=== PATIENT | male | born 1975 | race Caucasian/White ===

== ENCOUNTER 2024-03-22 11:43 | Outpatient (CLI) | payer OTHER, SELFPAY ==
--- NOTE | ~2024-03-22 | XR_ITS ---
Left wrist Technique: PA, oblique, lateral, and ulnar deviation views were obtained. Clinical History: Pain Findings: There is severe degenerative change of the radial scaphoid articulation. There is dorsal ro bluxation of the capitate with respect to the lunate, with dorsal tilt of the lunate. Possible underl samara scapholunate ligament tear. Soft tissues are unremarkable. Impression: Suspected scapholunate ligament tear with associated SLAC wrist, with advanced radio-scaphoid degener ative change, DISI, and dorsal subluxation of the capitate with respect to the lunate. Reviewed, dictated and finalized at location M. Impression: Suspected scapholunate ligament tear with associated SLAC wrist, with advanced radio-scaphoid degenerative change, DISI, and dorsal subluxation of the capitat e with respect to the lunate.
--- NOTE | ~2024-03-22 | XR_ITS ---
Right wrist Technique: PA, oblique, lateral, and ulnar deviation views were obtained. Clinical History: Pain Findings: No acute fracture or dislocation is seen. Osseous alignment is anatomic. Minimal degenerati ve change at the triscaphe joint and first CMC joint noted. Soft tissues are unremarkable. Impression: Minimal degenerative change, as above. Reviewed, dictated and finalized at location . Impression: Minimal degenerative change, as above.
[2024-03-22 12:01] LABS: Basophils Absolute Auto 0.04 K/mm3 (0.00-0.10); Basophils Percent Auto 0.7 % (0.0-1.0); Eosinophils Absolute Auto 0.15 K/mm3 (0.02-0.50); Eosinophils Percent Auto 2.6 % (1.0-6.0); Hematocrit 45.4 % (40.0-54.0); Hemoglobin 15.6 g/dL (14.0-18.0); Immature Granulocyte Absolute 0.01 K/mm3 (0.00-0.00); Immature Granulocyte Percent A 0.2 % (0.0-0.0); Lymphocytes Absolute Auto 1.77 K/mm3 (1.10-4.50); Mean Corpuscular HGB Conc 34.4 g/dL (32-36); Mean Corpuscular Hemoglobin 30.8 pg (27.0-31.0); Mean Corpuscular Volume 89.5 fL (78.0-102.0); Mean Platelet Volume 10.2 fl (8.7-11.0); Monocytes Absolute Auto 0.72 K/mm3 (0.10-0.90); Monocytes Percent Auto 12.6 % (2.0-11.0); Neutrophils Absolute Auto 3.02 K/mm3 (1.70-7.20); Neutrophils Percent Auto 52.9 % (50.0-70.0); Platelet Count Result 238 K/mm3 (150-420); Red Blood Count 5.07 M/mm3 (4.70-6.10); Red Cell Distribution Width 12.7 % (11.6-14.4); White Blood Count 5.7 K/mm3 (4.8-10.8)
[2024-03-22 12:24] LABS: Alanine Aminotransferase 255 U/L (16-63); Albumin Level 3.4 g/dL (3.4-5.0); Alkaline Phosphatase 90 U/L (46-116); Anion Gap 7 mmol/L (4-12); Aspartate Amino Transferase 167 U/L (15-37); Bilirubin,Total 0.6 mg/dL (0.00-1.00); Blood Urea Nitrogen 6 mg/dL (7-18); Calcium 8.7 mg/dL (8.5-10.1); Carbon Dioxide 29 mmol/L (21-32); Chloride 106 mmol/L (98-108); Cholesterol 141 mg/dL (0-200); Estimated Glomerular Filt Rate > 60; Glucose 65 mg/dL (70-99); HDL Direct 60 mg/dL (40-60); LDL Cholesterol Calculated 76 mg/dL (<130); Osmolality Calculated 289 mOsm/kg (285-295); Potassium 4.3 mmol/L (3.5-5.1); Sodium 142 mmol/L (136-145); Total Protein 7.2 g/dL (6.4-8.2); Triglycerides 26 mg/dL (0-150)
[2024-03-22 12:34] LABS: Thyroid Stimulating Hormone Reflex 0.65 u/IU/mL (0.36-3.74)
[2024-03-22 12:41] LABS: Rheumatoid Factor Screen Negative (Negative)
[2024-03-23 12:58] LABS: ANA Cascade Screen NEGATIVE (NEGATIVE)
[2024-03-24 07:44] LABS: Hepatitis B Surface Antigen NON-REACTIVE (NON-REACTIVE)
[2024-03-24 08:08] LABS: Hepatitis A Antibody IgM NON-REACTIVE (NON-REACTIVE); Hepatitis B Core Antibody NON-REACTIVE (NON-REACTIVE); Hepatitis C Virus Antibody REACTIVE (NON-REACTIVE)
[2024-04-05 11:26] LABS: Hepatitis C Additional Testing YES
== END 2024-03-22 11:44 | disposition home or self-care (01) ==
LOC: CHSLAB 11:45
PROVIDERS: PCP Family Medicine; Visit Provider Family Medicine
DX: Z00.00 Encounter for general adult medical examination without abnormal findings (principal); R74.01 Elevation of levels of liver transaminase levels; E03.9 Hypothyroidism, unspecified; M79.642 Pain in left hand; M25.532 Pain in left wrist; M25.531 Pain in right wrist; M79.641 Pain in right hand
CPT/HCPCS: 36415; 73110; 80053; 80061; 80074; 83516; 84443; 85025; 86038; 86225; 86235; 86430; 87522

== ENCOUNTER 2024-07-15 09:04 | Outpatient (CLI) | payer OTHER, SELFPAY ==
--- NOTE | ~2024-07-15 | MR_ITS ---
MRI of the lumbar spine Clinical History: Back pain Technique: Axial T2-weighted images, and sagittal T1-weighted, T2-weighted, and T2 fat-sat images wer e acquired. Findings: No fracture identified. Probable minimal grade 1 retrolisthesis of L2 over L3. There are ty pe III Modic changes especially about the L2-L3 disc space. No suspicious bone marrow signal abnormal ity seen. At L1-L2, there is moderate degenerative disc narrowing. No disc bulge or herniation evident. No spin al canal stenosis or definite neural foraminal narrowing. At L2-L3, there is severe degenerative disc narrowing. There is minimal disc bulge and mild facet art hropathy. No kenzie central canal stenosis. There is moderate bilateral neural foraminal narrowing. L3-L4, there is moderate degenerative disc narrowing. There is diffuse disc bulge and mild to moderat e facet arthropathy. No central canal stenosis. There is moderate to advanced right neural foraminal narrowing, and moderate left neural foraminal narrowing. At L4-L5, there is disc bulge with probable superimposed left paracentral disc protrusion, and severe facet arthropathy. There is resultant severe spinal canal stenosis/thecal sac compression, and sever e bilateral neural foraminal narrowing, right worse than left. At L5-S1, disc bulge and advanced facet arthropathy are present. There is mild central canal stenosis . There is severe bilateral neural foraminal compromise. Paravertebral soft tissues are unremarkable. Impression: Advanced degenerative spondylosis, worst at L4-L5. Please see details above. Reviewed, dictated and finalized at [facility]. Impression: Advanced degenerative spondylosis, worst at L4-L5. Please see details above.
== END 2024-07-15 09:05 | disposition home or self-care (01) ==
LOC: CHSIMG 09:06
PROVIDERS: PCP Family Medicine; Visit Provider Family Medicine
DX: M54.16 Radiculopathy, lumbar region (principal); M43.06 Spondylolysis, lumbar region
CPT/HCPCS: 72148

== ENCOUNTER 2024-10-13 15:34 | Emergency (ER) | payer OTHER, SELFPAY ==
[2024-10-13 15:34] VITALS: BP 120/86; PULSE 108; RESP 17; TEMP 36.6; O2SAT 97
--- NOTE | 2024-10-13 15:36 | ED_ITS ---
HPI - General Adult General Chief complaint: Back Pain/Injury Stated complaint: back pain Time Seen by Provider: 10/13/24 15:36 Source: patient Mode of arrival: ambulatory Limitations: no limitations History of Present Illness HPI narrative: 49-year-old white male with history of degenerative disc disease patient Dr. Dr. Reynaldo valencia get into pain management is not on any medicine for pain. Patient said he had a MRI done which showed degenerative disc disease. MRI was done July 17 Findings: No fracture identified. Probable minimal grade 1 retrolisthesis of L2 over L3. There are type III Modic changes especially about the L2-L3 disc space. No suspicious bone marrow signal abnormality seen. At L1-L2, there is moderate degenerative disc narrowing. No disc bulge or herniation evident. No spinal canal stenosis or definite neural foraminal narrowing. At L2-L3, there is severe degenerative disc narrowing. There is minimal disc bulge and mild facet arthropathy. No kenzie central canal stenosis. There is moderate bilateral neural foraminal narrowing. L3-L4, there is moderate degenerative disc narrowing. There is diffuse disc bulge and mild to moderate facet arthropathy. No central canal stenosis. There is moderate to advanced right neural foraminal narrowing, and moderate left neural foraminal narrowing. At L4-L5, there is disc bulge with probable superimposed left paracentral disc protrusion, and severe facet arthropathy. There is resultant severe spinal canal stenosis/thecal sac compression, and severe bilateral neural foraminal narrowing, right worse than left. At L5-S1, disc bulge and advanced facet arthropathy are present. There is mild central canal stenosis. There is severe bilateral neural foraminal compromise. Paravertebral soft tissues are unremarkable. Impression: Advanced degenerative spondylosis, worst at L4-L5. Please see details above. Patient says pain is worse it is better when he is lying down. Complains of tingling of his arms his feet. Denies any bowel incontinence. denies fever cough runny nose sore throat weakness problems voiding or stooling rash or itching bleeding or bruising dizziness or other complaints. Related Data Allergies Allergy/AdvReac Type Severity Reaction Status Date / Time No Known Allergies Allergy Verified 10/13/24 15:41 Review of Systems Review of Systems: All systems reviewed & are unremarkable except as noted in HPI and below PMFSH Past Medical History Medical History Degenerative disc disease Left leg injury Depression Anxiety Social History Social History Smoking status: Never smoker Alcohol intake: current Substance use type: marijuana Do You Feel Safe in your Home?: Yes Lack of Transportation: YES Lack of Food: Sometimes True Current Housing: Decline to Answer Concerned About Future Housing: YES Difficulty Paying Gas/Electric Bills: YES Difficulty Paying for Meds: No Education: High School Diploma/GED Exam Narrative: White male patient with no apparent distress.? Head normocephalic, atraumatic.? Eyes conjunctiva pink sclera nonicteric.? Extraocular movements are intact.? Ears externally normal.? Oropharynx is clear with moist mucous membranes without exudates.? Neck is supple nontender no lymphadenopathy.? Back Paralumbar tenderness negative straight leg raise bilaterally deep tender reflexes are +2 for lower extremities.? Lungs are clear.? Heart is regular rate and rhythm without murmurs gallops or rubs.? Chest wall nontender. Abdomen is soft and nontender no hepatosplenomegaly or masses no CVA tenderness no abdominal bruits.? Extremities no cyanosis clubbing or edema.? Skin is warm and dry without rashes or lesions.? Neurological patient is alert and oriented x4.? Motor and sensory grossly intact.? Gait is normal. Course Course Emergency Course: ?Patient placed in room: 4 ? History and physical was performed. Independent Historian: patient External Source Review: MRI done June Differential Dx includes but not limited to: degenerative disc disease acute on chronic back pain Medications were Reviewed: Medications given: Toradol 30 IM Independently Interpreted by me: Shared decision Making: evaluation was discussed all questions were asked and answered patient agreed with the plan he would take tramadol 50 mg every 6 hours as needed for pain and Tylenol and follow up with Dr. Dr. Reynaldo Callaway on Wednesday in 3 days. Social Situation Impacting Patients Care: Vital Signs Vital signs: Vital Signs Temperature 36.6 C 10/13/24 15:34 Pulse Rate 108 H 10/13/24 15:34 Respiratory Rate 17 10/13/24 15:34 Blood Pressure 120/86 10/13/24 15:34 Pulse Oximetry 97 10/13/24 15:34 Oxygen Delivery Room Air 10/13/24 15:34 Temperature 36.6 C 10/13/24 15:34 Pulse Rate 108 H 10/13/24 15:34 Respiratory Rate 17 10/13/24 15:34 Blood Pressure 120/86 10/13/24 15:34 Pulse Oximetry 97 10/13/24 15:34 Oxygen Delivery Room Air 10/13/24 15:34 Medical Decision Making Vital Signs Vital Signs: Vital Signs Temperature 36.6 C 10/13/24 15:34 Pulse Rate 108 H 10/13/24 15:34 Respiratory Rate 17 10/13/24 15:34 Blood Pressure 120/86 10/13/24 15:34 Pulse Oximetry 97 10/13/24 15:34 Oxygen Delivery Room Air 10/13/24 15:34 Temperature 36.6 C 10/13/24 15:34 Pulse Rate 108 H 10/13/24 15:34 Respiratory Rate 17 10/13/24 15:34 Blood Pressure 120/86 10/13/24 15:34 Pulse Oximetry 97 10/13/24 15:34 Oxygen Delivery Room Air 10/13/24 15:34 Discharge Plan Discharge Clinical Impression: Acute exacerbation of chronic low back pain Patient Disposition: Home, Self-Care Condition: Stable Instructions: Acute Low Back Pain (ED) Additional Instructions: Tylenol 500: 2 tablets 4 times a day as needed for pain . Tramadol 50 mg q.6 hours p.r.n. pain. Follow up with Dr. Dr. Reynaldo Callaway on Wednesday in 3 days. Return if you get worse or develops any new symptoms. Call Pain Management daily to schedule appointment. Patient Language: Occitan Prescriptions: New tramadol 50 mg tablet 50 mg PO Q6H PRN (Reason: pain) Qty: 14 0RF No Action bupropion HCl 300 mg tablet extended release 24 hr 300 mg PO QAM Qty: 90 3RF tamsulosin 0.4 mg capsule 0.4 mg PO DAILY Qty: 90 3RF sertraline 100 mg tablet 100 mg PO DAILY Qty: 90 3RF celecoxib [Celebrex] 200 mg capsule 200 mg PO DAILY Qty: 90 0RF quetiapine 50 mg tablet See Rx Instructions .ROUTE .COMPLEX Qty: 90 0RF Dose Instruction: TAKE 1 TABLET BY MOUTH EVERY DAY AT BEDTIME Rx Instructions: TAKE 1 TABLET BY MOUTH EVERY DAY AT BEDTIME Follow-up/Referrals: Jigar Callaway DO [Primary Care Provider] - Time of Disposition: 15:56
[2024-10-13] MEDS: KETOROLAC 30 MG/ML VIAL (*BKC) IM (15:51)
[2024-10-13 16:15] VITALS: BP 117/95; PULSE 85; RESP 16; TEMP 36.7; O2SAT 97
== END 2024-10-13 16:15 | disposition home or self-care (01) ==
LOC: CHSED 16:17
PROVIDERS: Emergency Provider Emergency Medicine; PCP Family Medicine
DX: M54.50 Low back pain, unspecified (principal); G89.29 Other chronic pain; F12.90 Cannabis use, unspecified, uncomplicated
CPT/HCPCS: 96372; 99283; J1885

== ENCOUNTER 2024-11-03 13:51 | Emergency (ER) | payer OTHER, SELFPAY ==
--- NOTE | ~2024-11-03 | CT_ITS ---
EXAMINATION: CT lumbar spine wo con DATE: 11/03/2024 16:57 INDICATION: Low back pain . TECHNIQUE: Computed tomography (CT) of the lumbar spine was performed without intravenous contrast. A utomated exposure control and iterative reconstruction technique were employed. The dose-length produ ct was 762.76 mGy-cm. COMPARISON: L-spine 07/15/2024. FINDINGS: 5 nonrib-bearing lumbar-type vertebral bodies. Pedicles intact. Mild scoliosis with lateral subluxation at L4-5. 2 mm retrolistheses at L2-3, L3-4 and L5-S1. Vertebral body heights are maintai ilir. Degenerative disc disease at all lumbar levels, severe at L2-3 and L4-5. Severe lower lumbar fac et arthropathy at L4-5 and L5-S1 with mild arthropathy at the remaining lumbar levels. Severe central canal stenosis and severe bilateral neural foraminal narrowing at L4-5 secondary to degenerative dis c, ligamentum, and facet change. Moderate left and severe right neural foraminal narrowing at L5-S1 s econdary to degenerative changes. Mild and moderate degrees of neural foraminal narrowing at the vilma ining lumbar levels. IMPRESSION: No acute fracture or traumatic malalignment in the lumbar spine. Severe bilateral neural foraminal na rrowing at L4-5 and on the right at L5-S1, secondary to degenerative changes. Severe central canal na rrowing at L4-5 secondary to degenerative changes. Reviewed, dictated and finalized at location K. K PLUG ASSEMBLER IMPRESSION: No acute fracture or traumatic malalignment in the lumbar spine. Severe bilater al neural foraminal narrowing at L4-5 and on the right at L5-S1, secondary to d egenerative changes. Severe central canal narrowing at L4-5 secondary to degene rative changes.
[2024-11-03 14:04] VITALS: BP 111/81; PULSE 106; RESP 15; TEMP 36.4; O2SAT 99
[2024-11-03] MEDS: HYDROcodone/acetaminophen (*CRX) 5-325 MG TABLET 1 TAB PO (16:21)
[2024-11-03] MEDS: dexAMETHasone SOD PHOS INJ 10 MG/ML 1 ML VIAL IM (16:22)
[2024-11-03] MEDS: KETOROLAC 30 MG/ML VIAL (*BKC) IM (16:22)
[2024-11-03 16:30] VITALS: BP 123/86; PULSE 77; RESP 18; TEMP 36.6; O2SAT 99
--- NOTE | 2024-11-03 16:51 | ED_ITS ---
HPI - General Adult General Chief complaint: Unspecified Stated complaint: my back and legs hurt really bad Time Seen by Provider: 11/03/24 15:56 History of Present Illness HPI narrative: Patient is a 49-year-old gentleman who presents emergency department with chief complaint of low back pain. Patient reports being worse over the last several months reports no injury patient does report that it has caused him to have worsening pain with ambulation. Related Data Allergies Allergy/AdvReac Type Severity Reaction Status Date / Time No Known Allergies Allergy Verified 10/13/24 16:25 Review of Systems Review of Systems: A 10 system review of systems was completed on the patient and is negative except for what is stated in the HPI. Nursing and ancillary documentation was reviewed. [facility] Past Medical History Medical History Degenerative disc disease Left leg injury Depression Anxiety Social History Social History Smoking status: Never smoker Alcohol intake: current Substance use type: marijuana Do You Feel Safe in your Home?: Yes Lack of Transportation: YES Lack of Food: Sometimes True Current Housing: Decline to Answer Concerned About Future Housing: YES Difficulty Paying Gas/Electric Bills: YES Difficulty Paying for Meds: No Education: High School Diploma/GED Exam Narrative: GENERAL: Well-appearing, well-nourished, and in no acute distress. HEAD: Normocephalic, atraumatic. EYES: PERRLA and EOMI. ENT: Nares clear, no rhinorrhea or epistaxis. Mucous membranes moist. NECK: Supple. CHEST: Clear to auscultation. No respiratory distress. HEART: Regular rate and rhythm. No murmur heard. Normal peripheral pulses. ABDOMEN: Soft, nontender, nondistended, normal active bowel sounds. EXTREMITIES: Normal range of motion. No edema. SKIN: Warm, dry, no rash. NEURO: No focal deficits. Alert and oriented x3. PSYCH: Normal mood and affect. Course Vital Signs Vital signs: Vital Signs Temperature 36.4 C 11/03/24 14:04 Pulse Rate 106 H 11/03/24 14:04 Respiratory Rate 15 11/03/24 14:04 Blood Pressure 111/81 11/03/24 14:04 Pulse Oximetry 99 11/03/24 14:04 Oxygen Delivery Room Air 11/03/24 14:04 Temperature 36.6 C 11/03/24 16:30 Pulse Rate 77 11/03/24 16:30 Respiratory Rate 18 11/03/24 16:30 Blood Pressure 123/86 11/03/24 16:30 Pulse Oximetry 99 11/03/24 16:30 Oxygen Delivery Room Air 11/03/24 14:04 Medical Decision Making MDM Narrative Medical decision making narrative: Differential diagnosis includes lumbar radiculopathy, degenerative disease Patient is having no back bowel or bladder incontinence. Patient has pain with ambulation no footdrop Patient will be started on steroids muscle relaxers anti-inflammatories will be referred to primary care and Neurosurgery Vital Signs Vital Signs: Vital Signs Temperature 36.4 C 11/03/24 14:04 Pulse Rate 106 H 11/03/24 14:04 Respiratory Rate 15 11/03/24 14:04 Blood Pressure 111/81 11/03/24 14:04 Pulse Oximetry 99 11/03/24 14:04 Oxygen Delivery Room Air 11/03/24 14:04 Temperature 36.6 C 11/03/24 16:30 Pulse Rate 77 11/03/24 16:30 Respiratory Rate 18 11/03/24 16:30 Blood Pressure 123/86 11/03/24 16:30 Pulse Oximetry 99 11/03/24 16:30 Oxygen Delivery Room Air 11/03/24 14:04 Discharge Plan Discharge Clinical Impression: Degenerative disc disease, Low back pain Patient Disposition: Home, Self-Care Condition: Stable Instructions: Antibiotic Form, Acute Low Back Pain (ED), Degenerative Disc Disease (ED) Patient Language: Belarusian Prescriptions: New diclofenac potassium 50 mg tablet 50 mg PO TID PRN (Reason: pain) Qty: 30 0RF prednisone 20 mg tablet 40 mg PO DAILY 5 Days Qty: 10 0RF orphenadrine citrate 100 mg tablet extended release 100 mg PO Q12H PRN (Reason: muscle pain) Qty: 30 0RF No Action tramadol 50 mg tablet 50 mg PO Q6H PRN (Reason: pain) Qty: 14 0RF bupropion HCl 300 mg tablet extended release 24 hr 300 mg PO QAM Qty: 90 3RF tamsulosin 0.4 mg capsule 0.4 mg PO DAILY Qty: 90 3RF sertraline 100 mg tablet 100 mg PO DAILY Qty: 90 3RF celecoxib [Celebrex] 200 mg capsule 200 mg PO DAILY Qty: 90 0RF quetiapine 50 mg tablet See Rx Instructions .ROUTE .COMPLEX Qty: 90 0RF Dose Instruction: TAKE 1 TABLET BY MOUTH EVERY DAY AT BEDTIME Rx Instructions: TAKE 1 TABLET BY MOUTH EVERY DAY AT BEDTIME Follow-up/Referrals: Jigar Callaway DO [Primary Care Provider] - Leigha Kinney MD [Physician] - Time of Disposition: 17:32
--- OUTSIDE RECORDS SUMMARY | 2024-11-09 07:01 | XMS_ITS | Clinical Summary ---
Author Organization [facility] Address [address] [place] [address]. [place], [place] [id number] [place] [id number] Care Team Providers Care Utility Division Project Manager Name Role Phone Yaron Moe MD Primary Care Provider Allergies No known active allergies Medications sertraline 100 MG tablet Take 200 mg by mouth daily. 6 03/17/2019 Active duloxetine 60 MG capsule Take 60 mg by mouth daily. 10/27/2018 Active divalproex EC 250 MG tablet Take 250 mg by mouth 2 (two) times daily. 6 03/16/2019 Active tamsulosin 0.4 MG Cap Take 0.8 mg by mouth daily. 6 03/16/2019 Active meloxicam 7.5 MG tablet Take 7.5 mg by mouth daily. 05/27/2021 Active buPROPion XL 300 MG 24 hr tablet Take 300 mg by mouth daily. 06/04/2021 Active HYDROcodone-magda taminophen 5-325 MG tabletIndicatio ns:Acute Pain < 3 Day Supply Take 1-2 tablets by mouth every 6 (six) hours as needed. 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 Gender Identity Not on file Sexual Orientation Not on file Last Filed Vital Signs Vital Sign Reading Time Taken Comments Blood Pressure 118/90 06/23/2021 5:00 PM CDT Pulse 86 06/23/2021 4:19 PM CDT Temperature 36.2 ??C (97.2 ??F) 06/23/2021 4:19 PM CD T Respiratory Rate 18 06/23/2021 4:19 PM CDT Oxygen Saturation 100% 06/23/2021 5:15 PM CDT Inhaled Oxygen Concentration - - Weight 81.6 kg (180 lb) 06/23/2021 4:19 PM CDT Height 167.6 cm (5' 6 ) 06/23/2021 4:19 PM CDT Body Mass Index 29.05 06/23/2021 4:19 PM CDT Plan of Treatment Health Maintenance Due Date Last Done Comments Colorectal Cancer Screening Colonoscopy (10 Years) 1973 Annual Physical 1976 Hepatitis C 1991 DTaP, Tdap and Td Vaccines ( 1 - Tdap) 1992 Hepatitis B Vaccines (1 of 3 - 19+ 3-dose series) 1992 Zoster Vaccines (1 of 2) 2023 COVID-19 Vaccine (1 - 2023-2 5 season) 2024 Influenza Adult (#1) 2024 Meningococcal Vaccine Aged Out No rohan rand eligible based on patient's age to complete this topic Pneumococcal Vaccine: Pediat rics (0 to 5 Years) and At-Risk Patients (6 to 64 Years) Aged Out No longer eligible b ased on patient's age to complete this topic RSV Immunizations Under 20 Months Aged Out No longer eligible based on patient's age to complete this topic Insurance [employer] Care Teams Utility Division Project Manager Relationship Specialty Start Date End Date Yaron Moe MD [id number] [place] [address] PCP - General FAMILY PRACTICE 08/07/21
== END 2024-11-03 17:45 | disposition home or self-care (01) ==
PROVIDERS: Emergency Provider Emergency Medicine; PCP Family Medicine
DX: M51.369 Other intervertebral disc degeneration, lumbar region without mention of lumbar back pain or lower extremity pain (principal); F41.9 Anxiety disorder, unspecified; F32.A Depression, unspecified; Z79.899 Other long term (current) drug therapy
CPT/HCPCS: 72131; 96372; 99284; A9270; J1100; J1885